=== PATIENT | female | born 1980 | race Caucasian/White ===

== ENCOUNTER 2016-12-10 18:49 | Emergency (ER) | payer OTHER ==
[2016-12-10 19:37] LABS: ABSOLUTE BASOPHIL COUNT 0 /CUMM (0.0-0.2); ABSOLUTE EOSINOPHIL COUNT 0.1 /CUMM (0.0-0.7); ABSOLUTE GRANULOCYTE CT 4.1 /CUMM (1.4-6.5); ABSOLUTE LYMPH COUNT 1.6 /CUMM (1.2-3.4); ABSOLUTE MONOCYTE COUNT 0.3 /CUMM (0.10-0.60); BASOPHIL % 0.6 % (0.0-2.0); GRANULOCYTE % 65.7 % (42.2-75.2); HEMATOCRIT 38.2 % (37-47); MEAN CORPUSCULAR HGB CONC 33.4 G/DL (33.0-37.0); MEAN CORPUSCULAR VOLUME 83.7 FL (81.0-99.0); MEAN PLATELET VOLUME 10.3 FL (7.4-10.4); PLATELET COUNT 150 /CUMM (130-400); RBC DISTRIBUTION WIDTH 14.4 % (11.5-14.5); RED BLOOD CELL CT 4.57 /CUMM (4.20-5.40); WHITE BLOOD CELL COUNT 6.2 /CUMM (4.8-10.8)
[2016-12-10] MEDS ORDERED: LEVOTHYROXINE175 MCG PO (20:22)
[2016-12-10 20:33] LABS: PT 11.7 SEC (9.4-12.5); PTT 29 SEC (25-37)
--- NOTE | 2016-12-10 20:41 | ED GI/GU/ABDOMINAL COMPLAINT ---
History of Present Illness General Chief Complaint: Female Urogenital Problems Stated Complaint: PT IS 3 MONTHS AND BLEEDING HEAVY Source: patient Exam Limitations: no limitations Allergies Coded Allergies: No Known Allergies (12/10/16) Reconcile Medications Levothyroxine Sodium 175 MCG TABLET 1 TAB PO DAILY THYROID (Reported) Triage Note: TRIAGE: PT TO ER C/C PAIN TO R/L ABD AND HEART SINCE MONDAY NIGHT. ALSO HAS HAD VAGINAL BLEEDING SINCE MONDAY. PT CURRENTLY IS 9 WEEKS , DUE DATE 07/25/2017. /M1. REPORTS USED 2 PADS TODAY FOR THE BLEEDING. SEES DR SCHAFER. Triage Nurses Notes Reviewed? yes ? Y Is pt currently ? No HPI: This patient is a [id number] female who presented to the emergency department today for evaluation of abdominal pain and vaginal bleeding. This patient is currently 9 weeks' gestation[address] She sees Dr. Dykes, her DAIRY HUSBANDRY WORKER. The patient reported that on she started to develop bilateral lower abdominal pain which has been coming and going. The pain on got up a 10 out of 10 and is currently approximately a 5 out of 10. The patient also reported that she started having vaginal bleeding on . She reported that she was going through 1 pad a day, but today she went through 2 pads. Her DAIRY HUSBANDRY WORKER recently started her on a medication to help the bleeding, but the patient does not remember what the medication was called. The patient denied any abnormal discharge or odor vaginally. She denied any fevers, chills, chest pain, difficulty breathing, nausea, or vomiting. She did report that the abdominal pain seemed to go into her upper abdomen today and she felt like, "her heart was heavy." (MARY BETH FITZPATRICK,DARNELL) Vital Signs & Intake/Output Vital Signs & Intake/Output Vital Signs Date Time Temp Pulse Resp B/P Pulse O2 O2 Flow FiO2 Ox Delivery Rate 12/10 2241 95.9 64 18 114/67 98 Room Air 12/10 211 96.5 63 18 113/72 98 Room Air 12/106 Room Air 12/10 190 99.1 68 20 117/81 99 Room Air ED Intake and Output 12/11 0000 12/10 1200 Intake Total Output Total Balance Patient 172 lb Weight Past History Travel History Traveled to [place] past 21 day No Medical History Any Pertinent Medical History? see below for history Neurological: NONE EENT: NONE Cardiovascular: NONE Respiratory: NONE Gastrointestinal: NONE Hepatic: NONE Renal: NONE Musculoskeletal: NONE Psychiatric: NONE Endocrine: NONE Blood Disorders: NONE Cancer(s): NONE NURSES' AIDE/Reproductive: NONE Tetanus Vaccine: Surgical History Surgical History: non-contributory Psychosocial History What is your primary language Namibian Tobacco Use: Never used ETOH Use: denies use Illicit Drug Use: denies illicit drug use Family History Hx Contributory? No (DARNELL CLINTON PA-C) Review of Systems Review of Systems Constitutional: Reports: no symptoms. EENTM: Reports: no symptoms. Respiratory: Reports: no symptoms. Cardiovascular: Reports: see HPI. GI: Reports: see HPI. Genitourinary: Reports: see HPI. Musculoskeletal: Reports: no symptoms. Skin: Reports: no symptoms. Neurological/Psychological: Reports: no symptoms. All Other Systems: Reviewed and Negative (DARNELL CLINTON PA-C) Physical Exam Physical Exam Gastrointestinal: normal bowel sounds, soft, non-tender, no organomegaly, NO REBOUND OR GUARDING. nO mCbURNEY'S POINT TENDERNESS. nEGATIVE Valdivia SIGN. nEGATIVE rOVSING SIGN. nO MASSES APPRECIATED. nONDISTENDED Comments: Well-developed well-nourished person in no acute distress HEENT: Normal EENT exam, head normocephalic, moist mucous membranes Neck: Supple, no lymphadenopathy Back: Normal gait. Normal inspection. No CVA tenderness Cardiovascular: Regular rate and rhythm with no murmurs, rubs, or gallops Respiratory: Chest nontender. No respiratory distress. Breath sounds clear to auscultation bilaterally with no wheezes, rales, rhonchi Extremity: Normal equal pulses Neuro: Alert oriented x3, cranial nerves II through XII grossly intact. Skin: No appreciable rash on exposed skin, skin is warm and dry. Psych: Mood and affect is normal Core Measures ACS in differential dx? No Severe Sepsis Present: No Septic Shock Present: No (DARNELL CLINTON PA-C) Progress Differential Diagnosis: appendicitis, biliary colic, bowel obstruction, colon cancer, cholecystitis, diverticulitis, ectopic , endometritis, gastritis, hepatitis, ischemic bowel, inflamm bowel dis, intrauterine , kidney stone, ovarian cyst, ovarian torsion, pancreatitis, PID/cervicitis, PUD/ GERD, perforated viscous, threatened AB, UTI/pyelo Diagnostic Imaging: Viewed by Me: Ultrasound. Discussed w/RAD: Ultrasound. Radiology Impression: PATIENT: IVANIA ROMERO PRESENT AGE: 36 PATIENT ACCOUNT NO: [id number] : 78 LOCATION: [facility] ORDERING PHYSICIAN: DARNELL CLINTON PA-C SERVICE DATE: 12/10/16 EXAM TYPE: US - US TRANSVAG EXAMINATION: Ultrasound of , less than 14 weeks. INDICATION: Vaginal bleeding, abdominal pain. HCG is not known. 9 weeks by history. TECHNIQUE: Real-time ultrasound of was performed with a transabdominal and transvaginal transducer accessing grayscale appearance and color Doppler flow. COMPARISON: None FINDINGS: The LMP is 09/30/2016 correspond to a gestational age of 10 weeks 1 day. A gestational sac is identified within the upper fundus. The mean sac diameter is 1.66 cm corresponding to a gestational age of 6 weeks 4 days. A possible pole is identified with a crown lump length of 0.54 cm for a gestational age of 6 weeks 3 days. A yolk sac is visualized but is relatively small in size compared to the pole. On real-time clips of the gestational sac there may be subchorionic hemorrhage present. An approximate heart rate is obtained measuring 116 bpm. The right ovary is identified measuring 3.7 x 2.6 x 2.5 cm. There are 2 anechoic structures within the right ovary measuring 1.8 and 1.6 cm H consistent with cysts. The left ovary is not visualized. IMPRESSION: 1. Size small for dates by approximately 4 weeks. Possible heart rate obtained, relatively low rate. Correlation with hCG levels recommended. Close interval follow-up as clinically appropriate is advised. 2. The left ovary is not visualized. DICTATED BY: SERJIO SALINAS MD DATE/TIME DICTATED:12/10/162246 [employer]:RON DATE/ TIME TRANSCRIBED:12/10/162246 CONFIDENTIAL, DO NOT COPY WITHOUT APPROPRIATE AUTHORIZATION. <Electronically signed in Other Vendor System> SIGNED BY: SERJIO SALINAS MD 12/10/162256 Initial ED EKG: normal axis, normal intervals, normal sinus rhythm, no ST T wave changes, 68 BPM Comments: 12/10/2016 9:15:42 PM: I discussed this patient with her DAIRY HUSBANDRY WORKER, Dr. Donis. Reported that she had given this patient a medication prior to knowing that she was bleeding. Her DAIRY HUSBANDRY WORKER reported that she did not know that she was having any vaginal bleeding. She reported that this patient can be discharged home with follow-up in the office. She reported that she is likely having a miscarriage. (MARY BETH FITZPATRICK,DARNELL) Plan of Care: Orders Procedure Date/time Status Add-on Test (ER Only) 12/10 2013 Active Add-on Test (ER Only) 12/10 2012 Active TROPONIN LEVEL 12/10 1917 Complete PARTIAL THROMBOPLASTIN TIME 12/10 1917 Complete PROTHROMBIN TIME 12/10 1917 Complete TYPE & SCREEN (NOT X-MATCH) 12/10 1917 Complete HUMAN BETA HCG TITRE 12/10 1910 Complete COMPREHENSIVE METABOLIC PANEL 12/10 1910 Complete CBC WITHOUT DIFFERENTIAL 12/10 1910 Complete EKG 12/11 1907 Active Laboratory Tests 12/10/161917: Anion Gap 11, Estimated GFR > 60, BUN/Creatinine Ratio 18.3, Glucose 95, Calcium 9.9, Total Bilirubin 0.7, AST 12 L, ALT 25, Alkaline Phosphatase 34, Troponin I < 0.01, Total Protein 7.5, Albumin 4.5, Globulin 3.0, Albumin/Globulin Ratio 1.5 , Beta HCG, Quant 89757.0, PT 11.7, INR 1.12, APTT 29, CBC w Diff NO MAN DIFF REQ, RBC 4.57, MCV 83.7, MCH 28.0, RDW 14.4, MPV 10.3, Gran % 65.7, Lymphocytes % 26.1, Monocytes % 5.6, Eosinophils % 2.0, Basophils % 0.6, Absolute Granulocytes 4.1, Absolute Lymphocytes 1.6, Absolute Monocytes 0.3, Absolute Eosinophils 0.1, Absolute Basophils 0, PUBS MCHC 33.4 Departure Departure Disposition: HOME OR SELF CARE Condition: Stable Clinical Impression Primary Impression: Threatened Referrals: PATIENT HAS NO PRIMARY CARE DR (PCP/Family) Additional Instructions: Please rest and avoid any strenuous activity. Take [id number] Tylenol for pain. Please call to make a follow-up appointment with her DAIRY HUSBANDRY WORKER tomorrow. Return for any worsening symptoms or concerns. Departure Forms: Customer Survey General Discharge Information (MARY BETH FITZPATRICK,DARNELL) PA/FILTER FILLER Co-Sign Statement Statement: ED Attending supervision documentation- x I saw and evaluated the patient. I have also reviewed all the pertinent lab results and diagnostic results. I agree with the findings and the plan of care as documented in the PA's/FILTER FILLER's documentation. [] I have reviewed the ED Record and agree with the PA's/FILTER FILLER's documentation. [] Additions or exceptions (if any) to the PAs/FILTER FILLER's note and plan are summarized below: [] (COLLIN CLARKE,CARLITO)
[2016-12-10 22:41] VITALS: BP 114/67
--- NOTE | 2016-12-10 22:57 | ULTRASOUND REPORT ---
EXAMINATION: Ultrasound of , less than 14 weeks. INDICATION: Vaginal bleeding, abdominal pain. HCG is not known. 9 weeks by history. TECHNIQUE: Real-time ultrasound of was performed with a transabdominal and transvaginal transducer accessing grayscale appearance and color Doppler flow. COMPARISON: None FINDINGS: The LMP is 09/30/2016 correspond to a gestational age of 10 weeks 1 day. A gestational sac is identified within the upper fundus. The mean sac diameter is 1.66 cm corresponding to a gestational age of 6 weeks 4 days. A possible pole is identified with a crown lump length of 0.54 cm for a gestational age of 6 weeks 3 days. A yolk sac is visualized but is relatively small in size compared to the pole. On real-time clips of the gestational sac there may be subchorionic hemorrhage present. An approximate heart rate is obtained measuring 116 bpm. The right ovary is identified measuring 3.7 x 2.6 x 2.5 cm. There are 2 anechoic structures within the right ovary measuring 1.8 and 1.6 cm H consistent with cysts. The left ovary is not visualized. IMPRESSION: 1. Size small for dates by approximately 4 weeks. Possible heart rate obtained, relatively low rate. Correlation with hCG levels recommended. Close interval follow-up as clinically appropriate is advised. 2. The left ovary is not visualized.
== END 2016-12-10 23:04 ==
LOC: ERH 18:49
PROVIDERS: Emergency Medicine
DX: O20.0 Threatened abortion (principal)
CPT/HCPCS: 76817; 93005; 93010; 96374; J0131